=== PATIENT | male | born 1930 | race Caucasian/White ===

== ENCOUNTER 2017-04-27 18:59 | Inpatient (IN) | payer OTHER ==
[~2017-04-27] VITALS: Ht 162.6 cm; Wt 64.0 kg
[2017-04-27 19:35] LABS: HEMATOCRIT 41.8 % (38.0-50.0); MCH 27.6 PG (29.0-34.0); MCHC 31.6 G/DL (30.0-36.0); MCV 87.3 FL (86-99); MEAN PLAT.VOLUME 10.9 uM^3 (9.0-12.4); PLATELET COUNT 225 K/uL (156-360); RBC DIS.WIDTH-CV 15.7 % (11.8-14.6); RBC DIS.WIDTH-SD 49.7 % (39-53); RED BLOOD COUNT 4.79 M/uL (4.00-5.50); WHITE BLOOD COUNT 18.2 K/uL (4.1-10.2)
[2017-04-27 19:41] LABS: ADD MIUA? YES; BILIRUBIN NEGATIVE; BLOOD MODERATE; GLUCOSE (STRIP) NEGATIVE; KETONES NEGATIVE; LEUKOCYTES LARGE; NITRITE NEGATIVE; PROTEIN (STRIP) 30; UROBILINOGEN 0.2 MG/DL (0.2-1.0)
[2017-04-27 19:45] LABS: CHLORIDE 102 mEq/L (99-109); POTASSIUM 5.3 mEq/L (3.7-5.4); SODIUM 140 mEq/L (136-147)
[2017-04-27 19:45] LABS: COLOR YELLOW ((YELLOW))
[2017-04-27 19:47] LABS: GLUCOSE 236 mg/dL (70-99)
[2017-04-27 19:48] LABS: ANION GAP 18 MEQ/L (2-14)
[2017-04-27 19:49] LABS: TOTAL BILIRUBIN 1.3 mg/dL (0.0-1.0)
[2017-04-27 19:50] LABS: ALKALINE PHOSPHATASE 86 IU/L (3-129)
[2017-04-27 19:52] LABS: UREA NITROGEN (BUN) 45 mg/dL (9-23)
[2017-04-27 19:55] LABS: GFR ESTIMATE (CALCULATED) 13 mL/min/
[2017-04-27 19:57] LABS: EPITHELIAL CELLS NONE SEEN /HPF; MUCUS NONE SEEN /LPF; WHITE BLOOD CELLS TNTC /HPF (0-5)
[2017-04-27 19:58] LABS: BACTERIA 4+ /HPF; CASTS NONE SEEN /LPF; CRYSTALS NONE SEEN
[2017-04-27 20:13] LABS: ABS NEUTROPHIL COUNT 16.3; ANISOCYTOSIS 1+; ATYPICAL LYMPHOCYTE 3.5 %; BAND NEUTROPHILS 24.6 % (0-8.0); EOSINOPHIL ABS CT 0; LYMPHOCYTES 2.6 % (15.0-45.0); METAMYELOCYTES 1.8 %; NUCLEATED RBC'S 0.9; SEG.NEUTROPHILS 64.9 % (46.0-76.0)
[2017-04-27 20:19] LABS: TROP-I INTERPRETATION NEGATIVE; TROPONIN-I 0.05 ng/mL (0.0-0.30)
[2017-04-28] VITALS (7 sets, daily range): BP systolic 95–105; BP diastolic 52–59
[2017-04-28] MEDS ORDERED: LOPID600 MG PO (01:15)
[2017-04-28] MEDS ORDERED: TYLENOL EXTRA500 MG PO (01:16)
[2017-04-28] MEDS ORDERED: FLOMAX0.4 MG PO (01:17)
[2017-04-28] MEDS ORDERED: MOTRIN600 MG PO (01:18)
[2017-04-28] MEDS ORDERED: NITROFURANTOIN100 MG PO (01:19)
[2017-04-28] MEDS ORDERED: CIPRO500 MG PO (01:19)
[2017-04-28] MEDS ORDERED: LIORESAL10 MG PO (01:20)
[2017-04-28] MEDS ORDERED: GLUCOPHAGE XR,500 MG PO (01:21)
[2017-04-28] MEDS ORDERED: NEURONTIN300 MG PO (01:22)
[2017-04-28] MEDS ORDERED: JANUMET 50/11 TABLET PO (01:23)
[2017-04-28] MEDS ORDERED: VITAMIN B-6100 MG PO (01:23)
[2017-04-28] MEDS ORDERED: MAALOX PLUS1 TABLET PO (01:24)
[2017-04-28] MEDS ORDERED: LEXAPRO10 MG PO (01:25)
[2017-04-28] MEDS ORDERED: ACID REDUCER20 MG PO (01:26)
[2017-04-28] MEDS ORDERED: LO-DOSE ASPIRIN81 M2 PO (01:27)
[2017-04-28] MEDS ORDERED: LIPITOR10 MG PO (01:28)
[2017-04-28] MEDS ORDERED: COZAAR25 MG PO (01:29)
[2017-04-28] MEDS ORDERED: AMOXICILLIN500 M1 PO (01:30)
[2017-04-28] MEDS ORDERED: MOBIC15 MG PO (01:30)
[2017-04-28] MEDS ORDERED: AMBIEN10 MG PO (01:31)
[2017-04-28] MEDS ORDERED: JANUVIA100 MG PO (01:32)
[2017-04-28] MEDS ORDERED: SINGULAIR10 MG PO (01:33)
[2017-04-28] MEDS ORDERED: LOMOTIL TABLET1 EACH PO (01:35)
[2017-04-28] MEDS ORDERED: ALLERGY RELIE15.8 ML BOTH NARES (01:37)
[2017-04-28] MEDS ORDERED: VENTOLIN HFA18 GM IH (01:37)
[2017-04-28] MEDS ORDERED: AZELASTINE HCL6 ML RIGHT EYE (01:39)
[2017-04-28] MEDS ORDERED: LEVEMIR FL100 UNIT/1 SC (01:40)
[2017-04-28] MEDS ORDERED: NEOMYCIN-POLY-7.5 ML BOTH EYES (01:43)
[2017-04-28] MEDS ORDERED: TOUJEO SOL300 UNIT/1 SC (01:45)
[2017-04-28 06:48] LABS: HEMATOCRIT 32.7 % (38.0-50.0); MCH 28.2 PG (29.0-34.0); MCHC 32.7 G/DL (30.0-36.0); MCV 86.1 FL (86-99); MEAN PLAT.VOLUME 11.5 uM^3 (9.0-12.4); PLATELET COUNT 169 K/uL (156-360); RBC DIS.WIDTH-CV 15.8 % (11.8-14.6); RBC DIS.WIDTH-SD 49.5 % (39-53); WHITE BLOOD COUNT 12.3 K/uL (4.1-10.2)
[2017-04-28 06:58] LABS: ANION GAP 12 MEQ/L (2-14); CHLORIDE 108 MEQ/L (99-109); POTASSIUM 4.7 MEQ/L (3.7-5.4); SAMPLE HEMOLYSIS CHECK 0; SAMPLE ICTERIC CHECK 0; SAMPLE LIPEMIA CHECK 0; SODIUM 139 MEQ/L (136-147); UREA NITROGEN (BUN) 46 mg/dL (9-23)
[2017-04-28 06:59] LABS: GFR ESTIMATE (CALCULATED) 18 mL/min/; GLUCOSE 357 mg/dL (70-99)
[2017-04-28 07:38] LABS: EOSINOPHIL (%) 0 % (0-5); HEMATOLOGY COMMENT 1 SMEAR COMPATIBLE; IMMATURE GRANULOCYTE (%) 0.3 % (0.0-0.7); INSTRUMENT ABS NEUTROPHIL CT 11.6 K/uL; LYMPHOCYTE COUNT 0.4 K/uL (1.0-2.8); MONOCYTE (%) 2.2 % (3-12); MONOCYTE COUNT 0.3 K/uL (0-0.8); NEUTROPHIL (%) 94.4 % (45-76); NEUTROPHIL COUNT 11.6 K/uL (1.8-6.4)
[2017-04-28 07:57] LABS: POINT-OF-CARE USER ID ENVKC36
[2017-04-28 12:05] LABS: POINT-OF-CARE METER ID UU13113698
[2017-04-28 16:23] LABS: POINT-OF-CARE METER ID UU13113803; POINT-OF-CARE USER ID ENVKC36
[2017-04-29 03:45] VITALS: BP 102/60
[2017-04-29 05:47] LABS: EOSINOPHIL (%) 0 % (0-5); HEMATOCRIT 29.2 % (38.0-50.0); IMMATURE GRANULOCYTE (%) 0.8 % (0.0-0.7); IMMATURE GRANULOCYTE COUNT 0.1 K/uL; INSTRUMENT ABS NEUTROPHIL CT 10.3 K/uL; LYMPHOCYTE COUNT 0.5 K/uL (1.0-2.8); MCHC 32.5 G/DL (30.0-36.0); MCV 86.1 FL (86-99); MEAN PLAT.VOLUME 11.6 uM^3 (9.0-12.4); MONOCYTE (%) 5.7 % (3-12); MONOCYTE COUNT 0.7 K/uL (0-0.8); NEUTROPHIL (%) 89.5 % (45-76); NEUTROPHIL COUNT 10.3 K/uL (1.8-6.4); PLATELET COUNT 183 K/uL (156-360); RBC DIS.WIDTH-CV 15.9 % (11.8-14.6); RBC DIS.WIDTH-SD 49.9 % (39-53); RED BLOOD COUNT 3.39 M/uL (4.00-5.50); WHITE BLOOD COUNT 11.5 K/uL (4.1-10.2)
[2017-04-29 06:23] LABS: ANION GAP 9 MEQ/L (2-14); CHLORIDE 114 MEQ/L (99-109); GFR ESTIMATE (CALCULATED) 30 mL/min/; POTASSIUM 4.7 MEQ/L (3.7-5.4); SAMPLE HEMOLYSIS CHECK 0; SAMPLE ICTERIC CHECK 0; SAMPLE LIPEMIA CHECK 0; SODIUM 144 MEQ/L (136-147); UREA NITROGEN (BUN) 45 mg/dL (9-23)
[2017-04-29 06:27] LABS: GLUCOSE 156 mg/dL (70-99)
[2017-04-29 07:06] LABS: Estimated Average Glucose 151 mg/dL (70-123); HEMOGLOBIN A1c (GLYCOHEMOGLOB) 6.9 % HGB (Below 5.7)
[2017-04-29 08:12] VITALS: BP 122/58
[2017-04-29 11:19] VITALS: BP 146/78
[2017-04-29 16:11] VITALS: BP 138/62
[2017-04-29 16:24] LABS: POINT-OF-CARE METER ID UU13113698
[2017-04-29 19:22] VITALS: BP 138/68
[2017-04-29 21:02] LABS: POINT-OF-CARE METER ID UU13113803
[2017-04-29 22:14] LABS: POINT-OF-CARE METER ID UU13113698
[2017-04-29 23:12] VITALS: BP 142/74
[2017-04-30 03:35] VITALS: BP 175/78
[2017-04-30 05:14] LABS: EOSINOPHIL COUNT 0.1 K/uL (0-0.3); HEMATOCRIT 30.8 % (38.0-50.0); IMMATURE GRANULOCYTE (%) 0.5 % (0.0-0.7); INSTRUMENT ABS NEUTROPHIL CT 6.6 K/uL; LYMPHOCYTE COUNT 0.8 K/uL (1.0-2.8); MCH 28.3 PG (29.0-34.0); MCHC 33.1 G/DL (30.0-36.0); MCV 85.3 FL (86-99); MEAN PLAT.VOLUME 11.3 uM^3 (9.0-12.4); MONOCYTE (%) 7.4 % (3-12); MONOCYTE COUNT 0.6 K/uL (0-0.8); NEUTROPHIL (%) 81.7 % (45-76); NEUTROPHIL COUNT 6.6 K/uL (1.8-6.4); PLATELET COUNT 222 K/uL (156-360); RBC DIS.WIDTH-CV 16.1 % (11.8-14.6); RBC DIS.WIDTH-SD 50.5 % (39-53); RED BLOOD COUNT 3.61 M/uL (4.00-5.50); WHITE BLOOD COUNT 8.1 K/uL (4.1-10.2)
[2017-04-30 05:41] LABS: ANION GAP 10 MEQ/L (2-14); CHLORIDE 114 MEQ/L (99-109); GFR ESTIMATE (CALCULATED) 44 mL/min/; MAGNESIUM 1.8 mg/dl (1.3-2.7); POTASSIUM 3.9 MEQ/L (3.7-5.4); SAMPLE HEMOLYSIS CHECK 0; SAMPLE ICTERIC CHECK 0; SAMPLE LIPEMIA CHECK 0; SODIUM 145 MEQ/L (136-147); UREA NITROGEN (BUN) 29 mg/dL (9-23)
[2017-04-30 05:42] LABS: GLUCOSE 94 mg/dL (70-99)
[2017-04-30 08:23] LABS: POINT-OF-CARE METER ID UU13113698; POINT-OF-CARE USER ID ENVKC36
[2017-04-30 08:38] VITALS: BP 173/89
[2017-04-30 11:08] VITALS: BP 165/79
[2017-04-30 11:41] LABS: POINT-OF-CARE METER ID UU13113803; POINT-OF-CARE USER ID ENVKC36
[2017-04-30 15:55] VITALS: BP 151/74
[2017-04-30 16:30] LABS: POINT-OF-CARE METER ID UU13113698; POINT-OF-CARE USER ID ENVKC36
[2017-04-30 16:44] LABS: POINT-OF-CARE METER ID UU13113698
[2017-04-30 20:13] VITALS: BP 145/74
[2017-04-30 21:10] LABS: POINT-OF-CARE METER ID UU13113803
[2017-05-01] VITALS: BP 127/61
[2017-05-01 03:46] VITALS: BP 160/82
[2017-05-01 05:32] LABS: EOSINOPHIL (%) 2.7 % (0-5); EOSINOPHIL COUNT 0.2 K/uL (0-0.3); HEMATOCRIT 32.3 % (38.0-50.0); IMMATURE GRANULOCYTE (%) 1.2 % (0.0-0.7); IMMATURE GRANULOCYTE COUNT 0.1 K/uL; LYMPHOCYTE COUNT 0.9 K/uL (1.0-2.8); MCH 27.4 PG (29.0-34.0); MCHC 32.5 G/DL (30.0-36.0); MCV 84.3 FL (86-99); MONOCYTE (%) 11.4 % (3-12); MONOCYTE COUNT 0.8 K/uL (0-0.8); NEUTROPHIL (%) 71.9 % (45-76); PLATELET COUNT 245 K/uL (156-360); RBC DIS.WIDTH-CV 15.8 % (11.8-14.6); RBC DIS.WIDTH-SD 48.1 % (39-53); RED BLOOD COUNT 3.83 M/uL (4.00-5.50); WHITE BLOOD COUNT 6.9 K/uL (4.1-10.2)
[2017-05-01 06:00] LABS: ANION GAP 9 MEQ/L (2-14); CHLORIDE 108 MEQ/L (99-109); GFR ESTIMATE (CALCULATED) 55 mL/min/; GLUCOSE 84 mg/dL (70-99); POTASSIUM 3.7 MEQ/L (3.7-5.4); SAMPLE HEMOLYSIS CHECK 0; SAMPLE ICTERIC CHECK 0; SAMPLE LIPEMIA CHECK 0; SODIUM 142 MEQ/L (136-147); UREA NITROGEN (BUN) 20 mg/dL (9-23); URIC ACID 6.5 mg/dL (3.1-9.2)
[2017-05-01 07:42] LABS: POINT-OF-CARE METER ID UU13113698
[2017-05-01 08:47] VITALS: BP 169/75
[2017-05-01 11:18] LABS: POINT-OF-CARE METER ID UU13113698
[2017-05-01 12:21] VITALS: BP 144/74
[2017-05-01 16:26] LABS: POINT-OF-CARE METER ID UU13113698
[2017-05-01 16:59] VITALS: BP 154/70
[2017-05-01 20:12] VITALS: BP 115/61
[2017-05-01 22:33] LABS: POINT-OF-CARE METER ID UU13113781
[2017-05-02] VITALS: BP 156/72
[2017-05-02 04:24] VITALS: BP 134/66
[2017-05-02 08:30] VITALS: BP 142/68
[2017-05-02 12:37] VITALS: BP 113/62
[2017-05-02] MEDS ORDERED: CIPRO500 MG PO (15:28)
[2017-05-02] MEDS ORDERED: NICOTINE PATCH1 EAC1 TD (15:28)
[2017-05-02] MEDS ORDERED: Colchicine,Colcrys PO (15:28)
[2017-05-02] MEDS ORDERED: AMLODIPINE BESYL5 MG PO (15:28)
[2017-05-02] MEDS ORDERED: PREDNISONE10 MG PO (15:28)
[2017-05-02 16:20] VITALS: BP 122/66
[2017-05-02 17:16] LABS: POINT-OF-CARE METER ID UU13113698
== END 2017-05-02 19:39 | disposition home or self-care (01) | DRG 872 ==
LOC: EME 18:59 → EDBD 18:59 → EDOF 04-28 02:01 → 4EAST 04-28 02:01 → ENRESERV 04-28 02:02 → 4EAST 04-28 03:12 → ENPENDDIS 05-02 → 4EAST 05-02 19:39
PROVIDERS: Emergency Medicine; Internal Medicine; Internal Medicine Nephrology
DX: A41.9 Sepsis, unspecified organism (principal); N12 Tubulo-interstitial nephritis, not specified as acute or chronic; N17.9 Acute kidney failure, unspecified; T39.395A Adverse effect of other nonsteroidal anti-inflammatory drugs [NSAID], initial encounter; R65.20 Severe sepsis without septic shock; I95.9 Hypotension, unspecified; E86.0 Dehydration; E87.2 Acidosis; R41.0 Disorientation, unspecified; J44.9 Chronic obstructive pulmonary disease, unspecified; L29.9 Pruritus, unspecified; R19.00 Intra-abdominal and pelvic swelling, mass and lump, unspecified site; I10 Essential (primary) hypertension; E11.9 Type 2 diabetes mellitus without complications; E78.00 Pure hypercholesterolemia, unspecified; M10.9 Gout, unspecified; N40.0 Benign prostatic hyperplasia without lower urinary tract symptoms; D64.9 Anemia, unspecified; F32.9 Major depressive disorder, single episode, unspecified; F17.210 Nicotine dependence, cigarettes, uncomplicated; Z79.4 Long term (current) use of insulin; Z79.84 Long term (current) use of oral hypoglycemic drugs; Z87.440 Personal history of urinary (tract) infections
CPT/HCPCS: 71010; 73610; 74176; 76770; 80048; 80053; 81003; 82948; 83036; 83605; 83735; 84100; 84484; 84550; 85025; 87040; 89190; 93005; 94640; 94640 76; 94799; 99202; 99281; 99285; G0103; J0696; J1644; J1815; J2543; J2930; J7030; J7050; J7512

== ENCOUNTER 2017-05-19 10:03 | Inpatient (IN) | payer OTHER ==
[~2017-05-19] VITALS: Ht 160 cm; Wt 60.2 kg
[~2017-05-19 10:03] MED LIST: ACID REDUCER20 MG PO; ALLERGY RELIE15.8 ML BOTH NARES; AMBIEN10 MG PO; AMLODIPINE BESYL5 MG PO; AMOXICILLIN500 M1 PO; AZELASTINE HCL6 ML RIGHT EYE; CIPRO500 MG PO; COZAAR25 MG PO; Colchicine,Colcrys PO; FLOMAX0.4 MG PO; GLUCOPHAGE XR,500 MG PO; JANUMET 50/11 TABLET PO; JANUVIA100 MG PO; LEVEMIR FL100 UNIT/1 SC; LEXAPRO10 MG PO; LIORESAL10 MG PO; LIPITOR10 MG PO; LO-DOSE ASPIRIN81 M2 PO; LOMOTIL TABLET1 EACH PO; LOPID600 MG PO; MAALOX PLUS1 TABLET PO; MOBIC15 MG PO; MOTRIN600 MG PO; NEOMYCIN-POLY-7.5 ML BOTH EYES; NEURONTIN300 MG PO; NICOTINE PATCH1 EAC1 TD; NITROFURANTOIN100 MG PO; PREDNISONE10 MG PO; SINGULAIR10 MG PO; TOUJEO SOL300 UNIT/1 SC; TYLENOL EXTRA500 MG PO; VENTOLIN HFA18 GM IH; VITAMIN B-6100 MG PO
[2017-05-19 10:58] LABS: EOSINOPHIL COUNT 0.1 K/uL (0-0.3); HEMATOCRIT 36.7 % (38.0-50.0); IMMATURE GRANULOCYTE (%) 0.2 % (0.0-0.7); INSTRUMENT ABS NEUTROPHIL CT 8.2 K/uL; LYMPHOCYTE COUNT 0.5 K/uL (1.0-2.8); MCH 27.6 PG (29.0-34.0); MCHC 32.7 G/DL (30.0-36.0); MCV 84.6 FL (86-99); MEAN PLAT.VOLUME 10.3 uM^3 (9.0-12.4); MONOCYTE (%) 8.4 % (3-12); MONOCYTE COUNT 0.8 K/uL (0-0.8); NEUTROPHIL (%) 84.8 % (45-76); NEUTROPHIL COUNT 8.2 K/uL (1.8-6.4); PLATELET COUNT 185 K/uL (156-360); RBC DIS.WIDTH-CV 15.5 % (11.8-14.6); RBC DIS.WIDTH-SD 48.1 % (39-53); RED BLOOD COUNT 4.34 M/uL (4.00-5.50); WHITE BLOOD COUNT 9.7 K/uL (4.1-10.2)
[2017-05-19 11:09] LABS: CHLORIDE 103 mEq/L (99-109); POTASSIUM 4.7 mEq/L (3.7-5.4); SODIUM 138 mEq/L (136-147)
[2017-05-19 11:11] LABS: GLUCOSE 133 mg/dL (70-99)
[2017-05-19 11:12] LABS: ANION GAP 14 MEQ/L (2-14)
[2017-05-19 11:13] LABS: TOTAL BILIRUBIN 0.6 mg/dL (0.0-1.0)
[2017-05-19 11:15] LABS: ALKALINE PHOSPHATASE 96 IU/L (3-129); GFR ESTIMATE (CALCULATED) 36 mL/min/
[2017-05-19 11:16] LABS: UREA NITROGEN (BUN) 27 mg/dL (9-23)
[2017-05-19 11:19] LABS: TROP-I INTERPRETATION NEGATIVE; TROPONIN-I < 0.01 ng/mL (0.0-0.30)
[2017-05-19 11:21] LABS: ADD MIUA? YES; BILIRUBIN NEGATIVE; BLOOD SMALL; COLOR YELLOW ((YELLOW)); GLUCOSE (STRIP) NEGATIVE; KETONES NEGATIVE; LEUKOCYTES LARGE; NITRITE POSITIVE; PROTEIN (STRIP) 30; SPECIFIC GRAVITY 1.012 (1.000-1.030); UROBILINOGEN 0.2 MG/DL (0.2-1.0)
[2017-05-19 11:26] LABS: BACTERIA RARE /HPF; EPITHELIAL CELLS NONE SEEN /HPF; MUCUS TRACE /LPF; WHITE BLOOD CELLS TNTC /HPF (0-5)
[2017-05-19 16:02] VITALS: BP 122/73
[2017-05-19 18:05] LABS: INFLUENZA A VIRAL ANTIGEN NEGATIVE; INFLUENZA B VIRAL ANTIGEN NEGATIVE
[2017-05-19 18:25] LABS: METH RESISTANT S AUREUS PCR NEGATIVE (NEGATIVE)
[2017-05-19 18:36] LABS: PROBE CHECK PASS; SPECIMEN PROCESSING CONTROL PASS
[2017-05-19 19:48] VITALS: BP 124/67
[2017-05-19 23:27] VITALS: BP 121/66
[2017-05-20 03:52] VITALS: BP 121/64
[2017-05-20 06:41] LABS: EOSINOPHIL (%) 0 % (0-5); HEMATOCRIT 34.9 % (38.0-50.0); IMMATURE GRANULOCYTE (%) 0.4 % (0.0-0.7); INSTRUMENT ABS NEUTROPHIL CT 4.6 K/uL; LYMPHOCYTE COUNT 0.3 K/uL (1.0-2.8); MCH 28.2 PG (29.0-34.0); MCHC 32.7 G/DL (30.0-36.0); MCV 86.4 FL (86-99); MEAN PLAT.VOLUME 11.2 uM^3 (9.0-12.4); MONOCYTE (%) 2.2 % (3-12); MONOCYTE COUNT 0.1 K/uL (0-0.8); NEUTROPHIL (%) 90.8 % (45-76); NEUTROPHIL COUNT 4.6 K/uL (1.8-6.4); PLATELET COUNT 189 K/uL (156-360); RBC DIS.WIDTH-CV 15.7 % (11.8-14.6); RBC DIS.WIDTH-SD 49.7 % (39-53); RED BLOOD COUNT 4.04 M/uL (4.00-5.50)
[2017-05-20 07:11] LABS: ANION GAP 13 MEQ/L (2-14); CHLORIDE 109 MEQ/L (99-109); POTASSIUM 4.9 MEQ/L (3.7-5.4); SAMPLE HEMOLYSIS CHECK 0; SAMPLE ICTERIC CHECK 0; SAMPLE LIPEMIA CHECK 0; UREA NITROGEN (BUN) 26 mg/dL (9-23)
[2017-05-20 07:22] LABS: GFR ESTIMATE (CALCULATED) 51 mL/min/; GLUCOSE 265 mg/dL (70-99); SODIUM 145 MEQ/L (136-147)
[2017-05-20 07:33] VITALS: BP 134/81
[2017-05-20 10:02] LABS: INTERNAL CONTROL VALID? YES
[2017-05-20 11:55] VITALS: BP 132/70
[2017-05-20 15:58] VITALS: BP 147/76
[2017-05-20 20:10] VITALS: BP 124/61
[2017-05-21 00:42] VITALS: BP 137/71
[2017-05-21 01:33] LABS: POINT-OF-CARE METER ID UU14188625
[2017-05-21 04:32] VITALS: BP 135/62
[2017-05-21 07:42] VITALS: BP 142/73
[2017-05-21 16:12] VITALS: BP 139/75
[2017-05-21 19:42] VITALS: BP 141/76
[2017-05-21 21:18] LABS: POINT-OF-CARE METER ID UU14188625
[2017-05-21 21:19] LABS: POINT-OF-CARE METER ID UU13113717
[2017-05-21 23:39] VITALS: BP 138/76
[2017-05-22 03:51] VITALS: BP 130/83
[2017-05-22 07:19] LABS: ANION GAP 12 MEQ/L (2-14); CHLORIDE 108 MEQ/L (99-109); GFR ESTIMATE (CALCULATED) 51 mL/min/; GLUCOSE 294 mg/dL (70-99); POTASSIUM 4.3 MEQ/L (3.7-5.4); SAMPLE HEMOLYSIS CHECK 0; SAMPLE ICTERIC CHECK 0; SAMPLE LIPEMIA CHECK 0; SODIUM 144 MEQ/L (136-147); UREA NITROGEN (BUN) 25 mg/dL (9-23)
[2017-05-22 08:08] VITALS: BP 136/78
[2017-05-22 12:00] VITALS: BP 134/76
[2017-05-22 15:51] VITALS: BP 138/72
[2017-05-22 20:01] LABS: POINT-OF-CARE METER ID UU14188625
[2017-05-22 20:01] LABS: POINT-OF-CARE METER ID UU14188625
[2017-05-22 20:10] VITALS: BP 130/61
[2017-05-22 22:01] LABS: POINT-OF-CARE METER ID UU14188625
[2017-05-22 23:48] VITALS: BP 148/70
[2017-05-23 04:08] VITALS: BP 140/76
[2017-05-23 09:05] VITALS: BP 142/70
[2017-05-23 11:34] VITALS: BP 151/72
[2017-05-23 12:30] LABS: POINT-OF-CARE METER ID UU14188625
[2017-05-23 16:25] VITALS: BP 129/63
[2017-05-23 17:07] LABS: POINT-OF-CARE METER ID UU14188625
[2017-05-23 19:21] VITALS: BP 113/59
[2017-05-23 21:17] LABS: POINT-OF-CARE METER ID UU13113717
[2017-05-23 23:43] VITALS: BP 138/76
[2017-05-24 04:00] VITALS: BP 127/68
[2017-05-24 06:29] LABS: HEMATOCRIT 37.5 % (38.0-50.0); MCHC 31.7 G/DL (30.0-36.0); MEAN PLAT.VOLUME 10.6 uM^3 (9.0-12.4); NRBC (%) 0.6 /100 WBC (0-0); RBC DIS.WIDTH-CV 15.3 % (11.8-14.6); RBC DIS.WIDTH-SD 47.1 % (39-53); RED BLOOD COUNT 4.41 M/uL (4.00-5.50); WHITE BLOOD COUNT 12.7 K/uL (4.1-10.2)
[2017-05-24 06:49] LABS: ANION GAP 8 MEQ/L (2-14); CHLORIDE 104 MEQ/L (99-109); GFR ESTIMATE (CALCULATED) 51 mL/min/; GLUCOSE 143 mg/dL (70-99); POTASSIUM 4.1 MEQ/L (3.7-5.4); SAMPLE HEMOLYSIS CHECK 0; SAMPLE ICTERIC CHECK 0; SAMPLE LIPEMIA CHECK 0; SODIUM 143 MEQ/L (136-147); UREA NITROGEN (BUN) 31 mg/dL (9-23)
[2017-05-24 06:50] LABS: PLATELET COUNT 261 K/uL (156-360)
[2017-05-24 07:51] LABS: ATYPICAL LYMPHOCYTE 2.6 %; EOSINOPHIL ABS CT 0.1; EOSINOPHILS 0.9 % (0-5.0); INSTRUMENT ABS NEUTROPHIL CT 7.8 K/uL; LYMPHOCYTES 7.7 % (15.0-45.0); METAMYELOCYTES 7.8 %; MYELOCYTES 4.3 %; PLAT.SUFFICIENCY ADEQUATE
[2017-05-24 08:00] LABS: BAND NEUTROPHILS 1.7 % (0-8.0)
[2017-05-24 08:23] VITALS: BP 131/70
[2017-05-24] MEDS ORDERED: ADVAIR HFA120 INHALA IH (14:12)
[2017-05-24] MEDS ORDERED: PREDNISONE20 MG PO (14:16)
[2017-05-24] MEDS ORDERED: INVANZ1 GM IV (14:18)
[2017-05-24] MEDS ORDERED: SPIRIVA18 MCG IH (14:20)
[2017-05-24 16:58] LABS: POINT-OF-CARE METER ID UU13113717
== END 2017-05-24 17:35 | disposition home or self-care (01) | DRG 190 ==
LOC: EME 10:03 → ENRESERV 14:24 → EDOF 14:32 → 5SOUTH 14:32 → CANRESERV 14:48 → ENRESERV 14:48 → 5SOUTH 15:37
PROVIDERS: Emergency Medicine; Hospitalist; Internal Medicine
DX: J44.0 Chronic obstructive pulmonary disease with (acute) lower respiratory infection (principal); J18.9 Pneumonia, unspecified organism; J44.1 Chronic obstructive pulmonary disease with (acute) exacerbation; N12 Tubulo-interstitial nephritis, not specified as acute or chronic; I12.9 Hypertensive chronic kidney disease with stage 1 through stage 4 chronic kidney disease, or unspecified chronic kidney disease; N18.3 Chronic kidney disease, stage 3 (moderate); E11.22 Type 2 diabetes mellitus with diabetic chronic kidney disease; E86.0 Dehydration; R06.89 Other abnormalities of breathing; R41.82 Altered mental status, unspecified; E78.5 Hyperlipidemia, unspecified; B96.20 Unspecified Escherichia coli [E. coli] as the cause of diseases classified elsewhere; Z16.12 Extended spectrum beta lactamase (ESBL) resistance; Z16.24 Resistance to multiple antibiotics; Y95 Nosocomial condition; Z79.4 Long term (current) use of insulin; Z85.118 Personal history of other malignant neoplasm of bronchus and lung; Z87.440 Personal history of urinary (tract) infections; Z87.891 Personal history of nicotine dependence; Z90.2 Acquired absence of lung [part of]; Z23 Encounter for immunization
CPT/HCPCS: 70450; 71020; 80048; 80053; 81003; 82948; 83605; 84484; 85025; 87040; 87070; 87077; 87086; 87186; 87205; 87449; 87502; 87641; 93005; 94640; 94640 76; 94760; 94799; 99202; 99281; 99284; J1335; J1650; J1815; J1956; J2185; J2920; J2930; J3370; J7030; J7040; J7050; J7512

== ENCOUNTER 2017-06-07 09:38 | Inpatient (IN) | payer OTHER ==
[~2017-06-07] VITALS: Ht 165.1 cm; Wt 64.0 kg
[~2017-06-07 09:38] MED LIST changes: +ADVAIR HFA120 INHALA IH; +INVANZ1 GM IV; +PREDNISONE20 MG PO; +SPIRIVA18 MCG IH
[2017-06-07 10:04] LABS: BASE EXCESS 4.9 mEq/L (-3 to +3); BICARBONATE 31.4 mEq/L (22-26); CARBOXY HGB 2.2 % (0-5); PCO2 53 mm Hg (35-45); PO2 67 mm Hg (80-100); SITE RR; pH 7.38 (7.35-7.45)
[2017-06-07 10:05] LABS: COMMENTS - BLOOD GASES NEG A+C+; DEVICE NC; MECHANICAL RATE 24 resp/min; O2 FLOW 5 L/MIN
[2017-06-07 10:16] LABS: EOSINOPHIL (%) 0.6 % (0-5); EOSINOPHIL COUNT 0.1 K/uL (0-0.3); HEMATOCRIT 40.6 % (38.0-50.0); IMMATURE GRANULOCYTE (%) 0.6 % (0.0-0.7); IMMATURE GRANULOCYTE COUNT 0.1 K/uL; INSTRUMENT ABS NEUTROPHIL CT 16.7 K/uL; LYMPHOCYTE COUNT 0.9 K/uL (1.0-2.8); MCH 27.4 PG (29.0-34.0); MCHC 31.8 G/DL (30.0-36.0); MCV 86.4 FL (86-99); MEAN PLAT.VOLUME 9.8 uM^3 (9.0-12.4); MONOCYTE (%) 4.8 % (3-12); MONOCYTE COUNT 0.9 K/uL (0-0.8); NEUTROPHIL (%) 89.2 % (45-76); NEUTROPHIL COUNT 16.7 K/uL (1.8-6.4); PLATELET COUNT 247 K/uL (156-360); RBC DIS.WIDTH-CV 15.9 % (11.8-14.6); RBC DIS.WIDTH-SD 50.2 % (39-53); WHITE BLOOD COUNT 18.7 K/uL (4.1-10.2)
[2017-06-07 10:22] LABS: PROTHROMBIN TIME 11.2 SEC (10.2-12.9)
[2017-06-07 10:24] LABS: PTT 33.1 SEC (25-37)
[2017-06-07 10:27] LABS: CHLORIDE 100 mEq/L (99-109); POTASSIUM 4.6 mEq/L (3.7-5.4); SODIUM 137 mEq/L (136-147)
[2017-06-07 10:29] LABS: GLUCOSE 78 mg/dL (70-99)
[2017-06-07 10:30] LABS: ANION GAP 9 MEQ/L (2-14)
[2017-06-07 10:31] LABS: TOTAL BILIRUBIN 0.7 mg/dL (0.0-1.0)
[2017-06-07 10:33] LABS: ALKALINE PHOSPHATASE 111 IU/L (3-129); GFR ESTIMATE (CALCULATED) 41 mL/min/
[2017-06-07 10:34] LABS: UREA NITROGEN (BUN) 24 mg/dL (9-23)
[2017-06-07 10:36] LABS: LIPASE 11 U/L (1.0-51.0); TROP-I INTERPRETATION NEGATIVE; TROPONIN-I < 0.01 ng/mL (0.0-0.30)
[2017-06-07 11:44] LABS: ADD MIUA? YES; BILIRUBIN NEGATIVE; BLOOD LARGE; COLOR YELLOW ((YELLOW)); GLUCOSE (STRIP) NEGATIVE; KETONES NEGATIVE; LEUKOCYTES LARGE; NITRITE POSITIVE; PROTEIN (STRIP) 100; UROBILINOGEN 0.2 MG/DL (0.2-1.0)
[2017-06-07 11:48] LABS: BACTERIA RARE /HPF; BUDDING YEAST 2+; EPITHELIAL CELLS NONE SEEN /HPF; MUCUS NONE SEEN /LPF; RED BLOOD CELLS TNTC /HPF (0-5); UCUL ADDED? YES; WHITE BLOOD CELLS TNTC /HPF (0-5); WHITE BLOOD CELLS CLUMP MANY /HPF (0-5)
[2017-06-07 14:50] LABS: POINT-OF-CARE METER ID UU14174216
[2017-06-07 16:18] LABS: POINT-OF-CARE METER ID UU13113781
[2017-06-07 16:47] LABS: TROP-I INTERPRETATION NEGATIVE; TROPONIN-I 0.02 ng/mL (0.0-0.30)
[2017-06-07 20:42] VITALS: BP 126/60
[2017-06-07 21:20] LABS: POINT-OF-CARE METER ID UU13113781
[2017-06-07 22:10] LABS: TROP-I INTERPRETATION NEGATIVE; TROPONIN-I < 0.01 ng/mL (0.0-0.30)
[2017-06-07 23:35] VITALS: BP 123/62
[2017-06-08 03:45] VITALS: BP 145/65
[2017-06-08 05:19] LABS: EOSINOPHIL (%) 0 % (0-5); HEMATOCRIT 33.6 % (38.0-50.0); IMMATURE GRANULOCYTE (%) 0.7 % (0.0-0.7); IMMATURE GRANULOCYTE COUNT 0.1 K/uL; INSTRUMENT ABS NEUTROPHIL CT 13.5 K/uL; LYMPHOCYTE COUNT 0.4 K/uL (1.0-2.8); MCH 28.5 PG (29.0-34.0); MCHC 32.7 G/DL (30.0-36.0); MEAN PLAT.VOLUME 11.1 uM^3 (9.0-12.4); MONOCYTE (%) 0.9 % (3-12); MONOCYTE COUNT 0.1 K/uL (0-0.8); NEUTROPHIL (%) 95.7 % (45-76); NEUTROPHIL COUNT 13.5 K/uL (1.8-6.4); PLATELET COUNT 190 K/uL (156-360); RBC DIS.WIDTH-CV 15.9 % (11.8-14.6); RBC DIS.WIDTH-SD 49.8 % (39-53); RED BLOOD COUNT 3.86 M/uL (4.00-5.50); WHITE BLOOD COUNT 14.1 K/uL (4.1-10.2)
[2017-06-08 05:46] LABS: ANION GAP 12 MEQ/L (2-14); CHLORIDE 105 MEQ/L (99-109); GFR ESTIMATE (CALCULATED) 36 mL/min/; POTASSIUM 4.8 MEQ/L (3.7-5.4); SAMPLE HEMOLYSIS CHECK 0; SAMPLE ICTERIC CHECK 0; SAMPLE LIPEMIA CHECK 0; SODIUM 140 MEQ/L (136-147)
[2017-06-08 05:52] LABS: GLUCOSE 295 mg/dL (70-99); UREA NITROGEN (BUN) 38 mg/dL (9-23)
[2017-06-08 07:38] LABS: POINT-OF-CARE METER ID UU13113781
[2017-06-08 09:00] VITALS: BP 118/57
[2017-06-08 11:19] LABS: POINT-OF-CARE METER ID UU13113781
[2017-06-08 12:00] VITALS: BP 109/55
[2017-06-08 16:43] LABS: POINT-OF-CARE METER ID UU13113781
[2017-06-08 17:00] VITALS: BP 117/56
[2017-06-08 19:03] VITALS: BP 110/56
[2017-06-08 20:38] LABS: POINT-OF-CARE METER ID UU13113781
[2017-06-08 23:05] VITALS: BP 131/73
[2017-06-09 04:00] VITALS: BP 136/71
[2017-06-09 05:33] LABS: HEMATOCRIT 31.4 % (38.0-50.0); MCH 28.2 PG (29.0-34.0); MCHC 32.5 G/DL (30.0-36.0); MCV 86.7 FL (86-99); MEAN PLAT.VOLUME 10.9 uM^3 (9.0-12.4); PLATELET COUNT 178 K/uL (156-360); RBC DIS.WIDTH-CV 15.9 % (11.8-14.6); RED BLOOD COUNT 3.62 M/uL (4.00-5.50); WHITE BLOOD COUNT 12.4 K/uL (4.1-10.2)
[2017-06-09 06:01] LABS: ANION GAP 10 MEQ/L (2-14); CHLORIDE 106 MEQ/L (99-109); GFR ESTIMATE (CALCULATED) > 59 mL/min/; GLUCOSE 309 mg/dL (70-99); POTASSIUM 4.2 MEQ/L (3.7-5.4); SAMPLE HEMOLYSIS CHECK 0; SAMPLE ICTERIC CHECK 0; SAMPLE LIPEMIA CHECK 0; SODIUM 141 MEQ/L (136-147); UREA NITROGEN (BUN) 31 mg/dL (9-23)
[2017-06-09 07:36] LABS: POINT-OF-CARE METER ID UU14314088
[2017-06-09 09:00] VITALS: BP 117/56
[2017-06-09 11:41] LABS: POINT-OF-CARE METER ID UU14314088
[2017-06-09 16:00] VITALS: BP 125/68
[2017-06-09 16:29] LABS: POINT-OF-CARE METER ID UU13113781
[2017-06-09 19:21] VITALS: BP 121/57
[2017-06-09 20:44] LABS: POINT-OF-CARE METER ID UU14174216
[2017-06-10] VITALS (7 sets, daily range): BP systolic 120–138; BP diastolic 62–68
[2017-06-10 05:47] LABS: HEMATOCRIT 31.3 % (38.0-50.0); MCH 28.5 PG (29.0-34.0); MCHC 32.9 G/DL (30.0-36.0); MCV 86.7 FL (86-99); MEAN PLAT.VOLUME 10.7 uM^3 (9.0-12.4); PLATELET COUNT 204 K/uL (156-360); RBC DIS.WIDTH-SD 50.5 % (39-53); RED BLOOD COUNT 3.61 M/uL (4.00-5.50); WHITE BLOOD COUNT 9.5 K/uL (4.1-10.2)
[2017-06-10 06:10] LABS: ANION GAP 9 MEQ/L (2-14); CHLORIDE 110 MEQ/L (99-109); GFR ESTIMATE (CALCULATED) 51 mL/min/; GLUCOSE 205 mg/dL (70-99); POTASSIUM 3.9 MEQ/L (3.7-5.4); SAMPLE HEMOLYSIS CHECK 0; SAMPLE ICTERIC CHECK 0; SAMPLE LIPEMIA CHECK 0; SODIUM 144 MEQ/L (136-147); UREA NITROGEN (BUN) 30 mg/dL (9-23)
[2017-06-10 07:51] LABS: POINT-OF-CARE METER ID UU13113781
[2017-06-10 11:18] LABS: POINT-OF-CARE METER ID UU14174216
[2017-06-10] MEDS ORDERED: XOPENEX1.25 MG/3 IH (12:41)
[2017-06-10] MEDS ORDERED: PREDNISONE10 MG PO (12:41)
[2017-06-10 16:25] LABS: POINT-OF-CARE METER ID UU14174216
[2017-06-10 21:09] LABS: POINT-OF-CARE METER ID UU14314088
[2017-06-11 00:27] VITALS: BP 130/76
[2017-06-11 03:09] VITALS: BP 131/69
[2017-06-11 04:39] LABS: HEMATOCRIT 33.7 % (38.0-50.0); MCH 27.4 PG (29.0-34.0); MCHC 32.3 G/DL (30.0-36.0); MCV 84.7 FL (86-99); MEAN PLAT.VOLUME 10.3 uM^3 (9.0-12.4); PLATELET COUNT 227 K/uL (156-360); RBC DIS.WIDTH-CV 15.5 % (11.8-14.6); RBC DIS.WIDTH-SD 47.6 % (39-53); RED BLOOD COUNT 3.98 M/uL (4.00-5.50); WHITE BLOOD COUNT 6.4 K/uL (4.1-10.2)
[2017-06-11 04:53] LABS: CHLORIDE 108 mEq/L (99-109); POTASSIUM 3.8 mEq/L (3.7-5.4); SODIUM 142 mEq/L (136-147)
[2017-06-11 04:56] LABS: ANION GAP 7 MEQ/L (2-14); GLUCOSE 74 mg/dL (70-99)
[2017-06-11 04:59] LABS: GFR ESTIMATE (CALCULATED) 51 mL/min/
[2017-06-11 05:00] LABS: UREA NITROGEN (BUN) 25 mg/dL (9-23)
[2017-06-11 08:04] VITALS: BP 134/66
[2017-06-11 08:06] LABS: POINT-OF-CARE METER ID UU13113698
[2017-06-11 11:25] VITALS: BP 130/69
[2017-06-11 11:56] LABS: POINT-OF-CARE METER ID UU13113781
[2017-06-11] MEDS ORDERED: BENZONATATE100 MG PO (16:45)
[2017-06-11] MEDS ORDERED: INVANZ1 GM IV (16:45)
[2017-06-11 17:06] LABS: POINT-OF-CARE METER ID UU13113781
[2017-06-11 19:40] VITALS: BP 131/68
[2017-06-11 23:27] LABS: QGTB-NIL 0.03 IU/mL (())
== END 2017-06-11 19:58 | disposition home or self-care (01) | DRG 871 ==
LOC: EME → EDBD 09:38 → EME 09:38 → EDOF 12:04 → 4EAST 12:04 → ENRESERV 12:07 → 4EAST 13:51 → ENPENDDIS 06-11 → 4EAST 06-11 19:58
PROVIDERS: Emergency Medicine; Internal Medicine; Internal Medicine Pulmonary Disease
DX: A41.9 Sepsis, unspecified organism (principal); J96.21 Acute and chronic respiratory failure with hypoxia; J96.22 Acute and chronic respiratory failure with hypercapnia; J44.1 Chronic obstructive pulmonary disease with (acute) exacerbation; J18.9 Pneumonia, unspecified organism; J44.0 Chronic obstructive pulmonary disease with (acute) lower respiratory infection; N39.0 Urinary tract infection, site not specified; N18.3 Chronic kidney disease, stage 3 (moderate); I12.9 Hypertensive chronic kidney disease with stage 1 through stage 4 chronic kidney disease, or unspecified chronic kidney disease; G93.40 Encephalopathy, unspecified; E11.22 Type 2 diabetes mellitus with diabetic chronic kidney disease; E78.5 Hyperlipidemia, unspecified; B96.20 Unspecified Escherichia coli [E. coli] as the cause of diseases classified elsewhere; Z16.12 Extended spectrum beta lactamase (ESBL) resistance; N17.9 Acute kidney failure, unspecified; F17.200 Nicotine dependence, unspecified, uncomplicated; Z79.4 Long term (current) use of insulin; Y95 Nosocomial condition; J98.01 Acute bronchospasm; R65.20 Severe sepsis without septic shock; Z87.440 Personal history of urinary (tract) infections; Z85.118 Personal history of other malignant neoplasm of bronchus and lung; M10.9 Gout, unspecified; J84.10 Pulmonary fibrosis, unspecified
CPT/HCPCS: 36600; 71010; 71250; 74230; 80048; 80053; 80202; 81003; 82803; 82948; 83605; 83690; 84484; 85025; 85027; 85610; 85730; 86480 90; 87040; 87070; 87077; 87086; 87186; 87205; 87449; 87502; 87641; 90686; 92610 GN; 92611 GN; 93005; 93306; 94640; 94640 76; 94799; 99202; 99281; 99285; G0103; J1335; J1644; J1815; J2543; J2930; J3370; J7030; J7050; J7512